=== PATIENT | female | born 1940 | race Caucasian/White ===

== ENCOUNTER 2016-09-19 08:01 | Day surgery (SDC) | payer MEDICARE ==
[~2016-09-19] VITALS: Ht 157.5 cm; Wt 52.6 kg
--- NOTE | 2016-09-19 10:18 | Operative Note ---
Surgeon/Diagnoses Surgeon/911 Emergency Services Dispatcher(s) Date of procedure: 09/19/16 Surgeon: MD Marek Arizmendi Diagnoses Pre-op diagnosis: History of colon polyps Post-op diagnosis Colon polyps Procedure Procedure Procedure: Colonoscopy with polypectomy Indications: OLIVIER THURSTON is a 76 year-old Female with a history of complicated colonoscopy in November of last year. Multiple polyps were excised and all were found to be serrated adenomas. Significant tortuosity and severe spasticity were also noted. Findings: Bowel preparation fair to moderate Fairly significant spasticity and fairly severe tortuosity once again encountered Significant diaphragmatic movement secondary to poor toleration of sedation Adjacent complex lobulated polyps at 50 cm (snared) Lobulated adjacent splenic flexure polyps (snared) Cluster of polyps at 45 cm (combination of snare and cold biopsy forceps) Cluster of polyps around 30 cm (combination of snare and cold biopsy forceps) Pedunculated polyp at 20 cm Cluster polyps between 15 and 20 cm (biopsied) Procedure Description: After informed consent was obtained, the patient was taken to the endoscopy suite. Monitored anesthesia care ensued after she was transferred to the LEFT lateral decubitus position. Rectal exam revealed no significant abnormality. The colonoscope was placed in position. The entire colon was evaluated. Bowel preparation was fair to moderate with irrigation and suctioning used to improve visualization. Adjacent complex lobulated polyps at [address] of snare. Adjacent lobulated splenic flexure polyps were excised by way of snare. A cluster polyps around 45 cm were excised by combination of snare and cold biopsy forceps. A cluster polyps around 30 were managed in the same manner. A pedunculated polyp at [address] of snare. A cluster polyps between 15 and 20 cm was biopsied. This area was extremely tortuous and spastic and complete removal cannot be confirmed. The colonoscope was carefully removed and the patient was transferred to recovery. In general, the patient had fairly significant spasticity and tortuosity. However, the greatest level of difficulty was encountered secondary to toleration of sedation with significant diaphragmatic motion. EBL (ml): 1 Anesthesia: Monitored anesthesia care Complications: No immediate Specimens: Adjacent complex lobulated polyps at 50 cm (snared) Lobulated adjacent splenic flexure polyps (snared) Cluster of polyps at 45 cm (combination of snare and cold biopsy forceps) Cluster of polyps around 30 cm (combination of snare and cold biopsy forceps) Pedunculated polyp at 20 cm Cluster polyps between 15 and 20 cm (biopsied) Disposition Disposition: Stable to recovery from where she will be discharged home. She will follow-up in one week. The patient has had 2 separate colonoscopies over a fairly short period of time the been quite difficult and complicated. She has multiple polyps that were initially felt to be likely hyperplastic throughout the LEFT colon. Pathology confirmed serrated adenomas at prior evaluation. Tortuosity, spasticity, and significant diaphragmatic motion (poor tolerance of sedation) combined to preclude complete removal of all of these lesions at one setting. Timing of her next colonoscopy is pending pathology, but will likely continue to need to be within 6-12 months (possibility utilizing intubation). Possible colonoscopy with the gastroenterology service will also be discussed with the patient. at 1018
[2016-09-19 13:42] VITALS: BP 137/69
--- NOTE | 2016-09-19 13:42 | Anesthesia Record ---
Anesthesia Record Part I Total IV fluids: 1200 EBL (ml): 0 Urine Output: 0 B/P: 137/69 % SaO2: 100 Pulse: 74 Resps: 16 Temp: 97.6 Patient is: Drowsy, Stable Stable to PACU at: 1010 (sds) at 1342
--- NOTE | 2016-09-19 13:43 | Anesthesia Record ---
Anesthesia Record Part II Discharge time: 822 Destination: Same day surgery PACU nurse assessment review? Yes Patient is: Stable Anesthesia complications? No at 1344
== END 2016-09-19 12:10 | disposition home or self-care (01) ==
LOC: SDC 08:01
PROVIDERS: Surgery
PROC: 0DBE8ZX Excision of Large Intestine, Via Natural or Artificial Opening Endoscopic, Diagnostic (ICD-10-PCS; 2016-09-19)
PROC: 0DBE8ZX Excision of Large Intestine, Via Natural or Artificial Opening Endoscopic, Diagnostic (ICD-10-PCS; principal; 2016-09-19 08:30)
DX: Z09 Encounter for follow-up examination after completed treatment for conditions other than malignant neoplasm (principal); Z86.010 Personal history of colon polyps; K63.5 Polyp of colon

== ENCOUNTER → 2017-02-10 | Outpatient (CLI) | payer MEDICARE ==
[2017-02-10 11:13] LABS: HEMOGLOBIN 14.5 g/dL (12.2-16.2); LYMPH % 18.5 % (10-50.0)
[2017-02-10 13:09] LABS: BUN 9 mg/dL (7-18)
[2017-02-10 13:16] LABS: GFR (ESTIMATED) 82 ML/MIN (59-)
== END ==
LOC: LAB 10:43
PROVIDERS: Internal Medicine Adolescent Medicine
DX: E78.5 Hyperlipidemia, unspecified (principal); I10 Essential (primary) hypertension; I25.10 Atherosclerotic heart disease of native coronary artery without angina pectoris; E03.9 Hypothyroidism, unspecified